=== PATIENT | male | born 1945 | race Caucasian/White ===

== ENCOUNTER → 2016-11-28 | Outpatient (REF) | payer MEDICARE, OTHER | LOC: M LAB REF 16:28 | PROVIDERS: ATTEND Internal Medicine | DX: Z51.81 Encounter for therapeutic drug level monitoring (principal); Z79.899 Other long term (current) drug therapy ==

== ENCOUNTER 2018-02-10 10:59 | Day surgery (SDC) | payer MEDICARE, BC, OTHER ==
[2018-02-10] MEDS: NS 1,000 ML IV (11:15)
[2018-02-10] MEDS ORDERED: LIDOCAINE 2% INJ 100 MG/5 ML SDV (FOR ANES.) As Ordered (13:31)
[2018-02-10] MEDS ORDERED: PROPOFOL 200 MG/20 ML VIAL As Ordered ×2 (13:31→13:34)
== END 2018-02-10 14:09 | disposition home or self-care (01) ==
LOC: M OPP 10:59
DX: Z12.11 Encounter for screening for malignant neoplasm of colon (principal); Z86.010 Personal history of colon polyps; K62.1 Rectal polyp; D12.5 Benign neoplasm of sigmoid colon; K64.0 First degree hemorrhoids; I10 Essential (primary) hypertension; E78.5 Hyperlipidemia, unspecified; E03.9 Hypothyroidism, unspecified; Z79.82 Long term (current) use of aspirin; Z79.899 Other long term (current) drug therapy
CPT/HCPCS: 45385

== ENCOUNTER → 2021-01-09 | Outpatient (CLI) | payer MEDICARE, BC, OTHER ==
[~2021-01-09] MED LIST: ASPI81TA26 PO; HYDR-3490 PO; LEVO50TA5 PO; PRAV20TA2 PO; RAMI1CAP26 PO
== END ==
LOC: M RAD 08:55
PROVIDERS: ATTEND Internal Medicine
DX: Z13.6 Encounter for screening for cardiovascular disorders (principal)

== ENCOUNTER → 2021-01-19 | Outpatient (CLI) | payer MEDICARE, BC, OTHER ==
--- NOTE | 2021-01-19 10:52 | REP ---
INDICATION: AAA SCREENING. COMPARISON: None. TECHNIQUE: Real-time sonographic evaluation of the abdominal aorta performed. FINDINGS: There is no sonographic evidence of abdominal aortic aneurysm. Maximum AP diameter of abdominal aorta: Proximal (at diaphragm):3.3 cm. At renal artery level: 1.6 cm Mid abdominal aorta:1.6 cm. Distal abdominal aorta (prebifurcation): 1.5 cm. Maximum AP diameter common iliac arteries: Right: 9 mm. Left: 8mm. IMPRESSION: No sonographic evidence of abdominal aortic aneurysm. <Electronically signed by Jairo Fernandez > 01/19/21 1041
== END ==
LOC: M RAD 09:11
PROVIDERS: ATTEND Internal Medicine
DX: Z86.79 Personal history of other diseases of the circulatory system (principal)

== ENCOUNTER → 2022-03-02 | Outpatient (CLI) | payer MEDICARE, BC, OTHER | LOC: M PLALAB 15:24 | PROVIDERS: ATTEND Chiropractor | DX: M25.551 Pain in right hip (principal); M25.552 Pain in left hip ==

== ENCOUNTER 2024-08-31 08:32 | Day surgery (SDC) | payer MEDICARE, BC ==
[~2024-08-31] VITALS: Ht 172.7 cm; Wt 90.9 kg
[~2024-08-31 08:32] MED LIST changes: +RAMI10CA64 PO; -RAMI1CAP26 PO
[2024-08-31] MEDS ORDERED: propofoL 200 MG/20 ML VIAL As Ordered ONE (09:56)
[2024-08-31] MEDS ORDERED: LIDOCAINE 2% 100MG/5ML SDV (FOR ANES.) As Ordered ONE (09:56)
[2024-08-31 10:06] VITALS: TEMP 97.4
[2024-08-31 10:29] VITALS: BP 113/68; O2SAT 97
== END 2024-08-31 10:36 | disposition home or self-care (01) ==
LOC: M OPP 08:32
PROVIDERS: ATTEND Internal Medicine Gastroenterology
DX: Z12.11 Encounter for screening for malignant neoplasm of colon (principal); Z86.0100 Personal history of colon polyps, unspecified; K64.0 First degree hemorrhoids; I10 Essential (primary) hypertension; E78.00 Pure hypercholesterolemia, unspecified; E03.9 Hypothyroidism, unspecified; Z79.890 Hormone replacement therapy; Z79.899 Other long term (current) drug therapy; Z87.891 Personal history of nicotine dependence